=== PATIENT | female | born 1995 | race Caucasian/White ===

== ENCOUNTER 2021-07-05 15:04 | Emergency (ER) | payer OTHER ==
[2021-07-05 15:22] VITALS: BP 119/80; PULSE 80; TEMP 98.3; BMI 28.3
== END 2021-07-05 16:16 | disposition home or self-care (01) ==
LOC: JERFT 15:04
DX: T74.11XA Adult physical abuse, confirmed, initial encounter (principal); Z77.21 Contact with and (suspected) exposure to potentially hazardous body fluids
CPT/HCPCS: 99282-25

== ENCOUNTER 2022-01-02 04:17 | Emergency (ER) | payer OTHER ==
[2022-01-02 04:39] VITALS: BP 124/82; PULSE 78; TEMP 98.4; BMI 28.3
== END 2022-01-02 04:45 | disposition home or self-care (01) ==
LOC: FER 04:17
DX: Z77.21 Contact with and (suspected) exposure to potentially hazardous body fluids (principal)
CPT/HCPCS: 99282-25

== ENCOUNTER 2022-01-09 04:59 | Emergency (ER) | payer OTHER ==
[2022-01-09 05:06] VITALS: BP 125/84; PULSE 89; TEMP 97.9; BMI 28.3
[2022-01-09] MEDS ORDERED: ACETAMINOPHEN 325 MG TABLET (FP) PO ONE (05:34)
[2022-01-09] MEDS ORDERED: ACETAMINOPHEN 325 MG TABLET (FP) ONE (05:40)
== END 2022-01-09 05:53 | disposition home or self-care (01) ==
LOC: JER 04:59
DX: S13.9XXA Sprain of joints and ligaments of unspecified parts of neck, initial encounter (principal); V49.40XA Driver injured in collision with unspecified motor vehicles in traffic accident, initial encounter
CPT/HCPCS: 99283-25

== ENCOUNTER 2024-08-24 06:09 | Emergency (ER) | payer OTHER, BC ==
[2024-08-24 06:34] VITALS: TEMP 98.2; BMI 30.9
[2024-08-24 07:15] VITALS: BP 125/90; PULSE 92; RESP 18
== END 2024-08-24 09:46 | disposition home or self-care (01) ==
LOC: FER 06:09
DX: R07.89 Other chest pain (principal); R05.9 Cough, unspecified; T59.3X3A Toxic effect of lacrimogenic gas, assault, initial encounter; Y35.811A Legal intervention involving manhandling, law enforcement official injured, initial encounter
CPT/HCPCS: 71045-TC-FY; 99283-25